=== PATIENT | male | born 1990 | race African-American/Black ===

== ENCOUNTER 2017-06-11 23:02 | Emergency (ER) | payer SELFPAY ==
--- NOTE | 2017-06-11 23:57 | RAD ---
LEFT KNEE FOUR VIEWS: HISTORY: Chronic knee pain, worsening over the last few days. FINDINGS: Ossification related to an old medial collateral ligament injury is noted. There is some medial comp artment narrowing. There are no signs of fracture or joint effusion. Benign appearing chronic perio steal changes along the proximal tibia are seen. There is a somewhat fragmented tibial tubercle pres ent. IMPRESSION: No acute findings. POS: [facility]
== END 2017-06-11 23:48 | disposition home or self-care (01) ==
LOC: ERS 23:02
DX: M76.52 Patellar tendinitis, left knee (principal); M23.92 Unspecified internal derangement of left knee

== ENCOUNTER 2018-02-20 14:21 | Emergency (ER) | payer BC, SELFPAY | END 2018-02-20 14:34 | disposition home or self-care (01) | LOC: SCSER 14:21 | DX: J06.9 Acute upper respiratory infection, unspecified (principal) | CPT/HCPCS: 99283 ==

== ENCOUNTER 2019-02-02 20:17 | Emergency (ER) | payer BC ==
[2019-02-02] MEDS ORDERED: Acetaminophen 500 MG TAB ONE (21:58)
== END 2019-02-02 21:35 | disposition home or self-care (01) ==
LOC: ERS 20:17
DX: J10.1 Influenza due to other identified influenza virus with other respiratory manifestations (principal); J45.909 Unspecified asthma, uncomplicated
CPT/HCPCS: 87804; 99283